=== PATIENT | male | born 1965 | race Caucasian/White ===

== ENCOUNTER 2018-08-11 06:30 | Day surgery (SDC) | payer BC, MEDICAID ==
[2018-08-11] MEDS ORDERED: Midazolam 1 MG/ML 2 ML SDV ONE (07:19)
[2018-08-11] MEDS ORDERED: Propofol 200 MG/20 ML SDV ONE ×2 (07:19→07:53)
[2018-08-11] MEDS ORDERED: fentaNYL 100 MCG/2 ML SDV ONE (07:19)
[2018-08-11] MEDS ORDERED: Sodium Chloride 0.9% 1,000 ML IV SCH (07:30)
[2018-08-11 08:59] VITALS: BP 123/85
--- NOTE | 2018-08-11 13:34 | PROC ---
DATE OF PROCEDURE: 08/11/2018 SURGEON: Zurdo Gonzales MD INDICATIONS: Mc is a 52-year-old male, comes in for a screening colonoscopy. He has had no GI complaints. PROCEDURE IN DETAIL: Anesthesia was given by nurse talking books library clerk. During the procedure, we used 2 mg of Versed, 2 mcg of fentanyl, and 400 mg of propofol. The Olympus 180AL scope was used, and the rectum was examined with a gloved finger, then the tube was placed into the rectum and advanced under direct vision. The prostate was a grade 3/6, symmetrical, and soft. The tube was advanced slowly. We had to use external pressure in order to get to the cecum. Upon reaching the cecum, there were no lesions, ulceration, no abnormality. We also got a quick look into the small intestine. Upon retraction of the tube, noted no lesions, ulceration, no abnormality throughout the entire colon. The rectum was unremarkable as well. The tube was removed. The patient tolerated the procedure well. PREOPERATIVE DIAGNOSIS: Screening colonoscopy. POSTOPERATIVE DIAGNOSIS: Normal colon from cecum to rectum. Routine screening should be done for this gentleman. Zurdo Gonzales MD /[id number]
== END 2018-08-11 09:05 | disposition home or self-care (01) ==
LOC: JP.SDS 06:30
PROVIDERS: ATTEND Internal Medicine
DX: Z12.11 Encounter for screening for malignant neoplasm of colon (principal)
CPT/HCPCS: 45378; J2250; J2704; J3010